=== PATIENT | female | born 1990 | race African-American/Black ===

== ENCOUNTER 2020-10-01 21:22 | Emergency (ER) | payer BC, OTHER ==
[~2020-10-01] VITALS: Ht 167.6 cm; Wt 114.8 kg
[2020-10-01 21:23] VITALS: BP 138/79
== END 2020-10-02 00:58 | disposition home or self-care (01) ==
LOC: ER 21:22
DX: R09.81 Nasal congestion (principal); R51.9 Headache, unspecified; R06.02 Shortness of breath; R07.89 Other chest pain; Z20.828 Contact with and (suspected) exposure to other viral communicable diseases